=== PATIENT | male | born 1965 | race Caucasian/White ===

== ENCOUNTER 2016-11-21 09:38 | Emergency (ER) | payer BC ==
[~2016-11-21] VITALS: Ht 185.4 cm; Wt 102.6 kg
[~2016-11-21 09:38] MED LIST: CEPH500C PO
[2016-11-21 09:45] VITALS: TEMP 36.7; Ht 185.4 cm; Wt 102.6 kg
[2016-11-21] MEDS ORDERED: ACETAMINOPHEN 500 MG TAB PO STA (09:59)
--- NOTE | 2016-11-21 10:04 | EMERGENCY ROOM VISIT NOTE ---
History Report prepared by Scribe: Mague Loznao Under the Supervision of: Dr. German Fraser D.O. First contact with patient: 09:54 Chief Complaint: FACIAL PAIN/INJURY Stated Complaint: HIT IN FACE W/BALL History of Present Illness The patient is a 51 year old male who presents to the Emergency Room with complaints of persistent facial pain that started prior to arrival. The patient was playing softball earlier this morning when he was hit in the face by a ball. The ball hit his left cheek and temporal area and he briefly lost consciousness. The patient rates his pain as a 3/10. He also complains of some neck pain. He denies any recent headaches, nausea, vomiting or back pain. 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 A total of 10 systems reviewed and were otherwise negative. Past Medical & Surgical Medical Problems: (1) History of DVT (deep vein thrombosis) (2) Torn Achilles tendon Social History Smoking Status: Never Smoker Alcohol Use: occasionally Drug Use: none Marital Status: Housing Status: lives with family Occupation Status: employed Current/Historical Medications Scheduled Cephalexin Monohydrate (Keflex), 500 MG PO QID Scheduled PRN Oxycodone Immediate Rel Tab (Roxicodone Ir), 1-2 TAB PO Q4H PRN for Severe Pain Allergies Coded Allergies: Morphine (Unverified Allergy, Unknown, NAUSEA/ITHCY, 11/21/16) Morphine and Related (Unverified Allergy, Unknown, NAUSEA, ITCHINESS, 11/21) Physical Exam Vital Signs Date Time Temp Pulse Resp B/P (MAP) Pulse Ox O2 Delivery O2 Flow Rate FiO2 11/21/16 11:03 59 18 128/84 96 Room Air 11/21/16 09:45 36.7 68 18 149/96 96 Room Air Physical Exam GENERAL: Patient is awake, alert, somewhat anxious appearing but does not appear uncomfortable. EYES: The conjunctivae are clear. The pupils are round and reactive. Significant periorbital edema and ecchymosis around the left eye, no subcutaneous emphysema appreciated. No hyphema noted. Small conjunctival hemorrhage noted on the lateral aspect of the eye. EARS, NOSE, MOUTH AND THROAT: TM's clear bilaterally. The nose is without any evidence of any deformity. Mucous membranes are moist tongue is midline NECK: The neck is nontender and supple. RESPIRATORY: Normal respiratory effort is noted there is no evidence of wheezing rhonchi or rales CARDIOVASCULAR: Regular rate and rhythm noted there no murmurs rubs or gallops normal S1 normal S2 GASTROINTESTINAL: The abdomen is soft. Bowel sounds are present in all quadrants. Abdomen is nontender MUSCULOSKELETAL/EXTREMITIES: There is no evidence of gross deformity full range of motion is noted in the hips and shoulders SKIN: There is no obvious evidence of any rash. There are no petechiae, pallor or cyanosis noted. NEUROLOGIC: Patient is awake alert and oriented x3 strength is symmetric patellar reflexes are 2+ bilaterally Medical Decision & Procedures ER Provider Diagnostic Interpretation: Radiology results as stated below per my review and radiologist interpretation: HEAD CT NONCONTRAST CT DOSE: 774.61 mGy.cm HISTORY: Facial injury. trauma TECHNIQUE: Multiaxial CT images of the head were performed without the use of intravenous contrast. Automated exposure control was utilized for this study. A dose lowering technique was utilized adhering to the principles of ALARA. Comparison: None. Findings: Left periorbital soft tissue swelling which is better present on the same day maxillofacial CT. The calvarium is intact. The ventricles and sulci are within normal limits. There is no mass, hematoma, midline shift, or acute infarct. Impression: No acute intracranial abnormality. MAXILLOFACIAL CT CT DOSE: 774.61 mGy.cm HISTORY: Left-sided facial injury. trauma TECHNIQUE: Multiaxial CT images of the maxillofacial region were performed and reformatted in the coronal plane without the use of contrast. A dose lowering technique was utilized adhering to the principles of ALARA. COMPARISON: None. FINDINGS: The visualized cervical spine, mandible, nasal bone, and right facial osseous structures are intact. No fractures within the left lamina papyracea are medial wall of the left maxillary sinus. Nondisplaced fractures involving the base of the left pterygoid plates and left lateral pterygoid plate. Comminuted and mildly displaced left zygomatic arch fracture. Comminuted fractures involving the lateral wall of the left maxillary sinus. Essentially nondisplaced fracture within the anterior wall of the left maxillary sinus. The left orbital floor fracture is not significantly displaced. Comminuted fractures within the lateral wall of the left orbit demonstrates up to 2 mm of depression. The globes and retrobulbar fat are intact. Left periorbital and left facial soft tissue swelling. There is hemorrhage within the left maxillary sinus. There is no evidence for herniation of the orbital fat into the left orbital floor fracture. IMPRESSION: 1. Above fractures constitute a left zygomaticomaxillary complex fracture as described above. There is also extension into the left pterygoid plates. 2. Left periorbital/facial soft tissue swelling. 3. Hemorrhage within the left maxillary sinus. Electronically signed by: Leonel Farr M.D. 11/21/2016 10:36 AM Medications Administered Medications (Trade) Dose Ordered Sig/Prakash Route Start Time Stop Time Status Last Admin Dose Admin Acetaminophen (Tylenol Tab) 1,000 mg NOW STAT PO 11/21/16 09:59 11/21/16 10:00 DC 11/21/16 10:07 1,000 MG ED Course 0955: The patient was evaluated in room B4. A complete history and physical examination were performed. 0959: Acetaminophen 1000 mg PO. 1100: I discussed the patients case with Dr. Gil Gaines, Neurosurgery, a friend of the patient. He recommends the patient follow up with Dr. Treviño, ENT in [place], [place]. 1102: I reevaluated the patient. He is resting comfortably. I discussed his results and discharge instructions and he verbalized complete understanding and agreement. Medical Decision The patient is a 51-year-old male who was playing softball today and was struck on the left side of his face with a line drive. The patient was playing second base. The patient had significant tenderness and swelling to the left periorbital region. He did not appear to have any hyphema or pupillary changes on exam. The patient arrived at the emergency department with a friend who is also a neurosurgical sap solution manager consultant at [facility]. The patient had his cervical spine clinically cleared in the emergency department. I discussed the patient's CAT scan with him. He was treated with Tylenol in the emergency department. He also had an ice pack placed to the side of the face. The patient is found have multiple facial bone fractures. This would appear to be consistent with a tripod-like injury but also has some injury to the maxillary sinus. The patient was started on a course of antibiotics. I discussed the patient's CAT scan report with him and he was given a disc as well as a report to take with him. I called the neurosurgeon who came to the emergency Department with him who was also playing softball and he made a recommendation of an ear nose and throat physician in the [place] area who could follow this up. The patient was encouraged to rest and avoid any strenuous activity. He was also encouraged to try not to blow his nose. He was also encouraged to continue all medications as prescribed and follow-up with ear nose and throat physician periodicals library assistant is possible but return to the emergency department immediately if symptoms change worsen or the need arises. Medication Reconcilliation Current Medication List: was personally reviewed by me Blood Pressure Screening Patient's blood pressure: Elevated blood pressure Blood pressure disposition: Elevated BP felt to be situational Impression Primary Impression: Multiple facial bone fractures Additional Impressions: Zygoma fracture Facial contusion Scribe Attestation The scribe's documentation has been prepared under my direction and personally reviewed by me in its entirety. I confirm that the note above accurately reflects all work, treatment, procedures, and medical decision making performed by me. Departure Information Dispostion Home / Self-Care Prescriptions Oxycodone Immediate Rel Tab (ROXICODONE IR) 5 Mg Tab 1-2 TAB PO Q4H Y for Severe Pain, #24 TAB Prov: German Fraser, DO 11/21/16 Cephalexin Monohydrate (KEFLEX) 500 Mg Cap 500 MG PO QID, #28 CAP Prov: German Fraser, DO 11/21/16 Referrals Ever Mac M.D. (PCP) Patient Instructions Fx Facial, My [facility] Additional Instructions Call the ear nose and throat physician tomorrow morning to schedule a follow-up appointment. Try your best to avoid blowing her nose. Dr Darren Godfrey Continue all medications as prescribed. Continue taking Tylenol as directed for mild pain. Return to the emergency department immediately if symptoms change worsen or the need arises. Problem Qualifiers
--- NOTE | 2016-11-21 10:38 | DIAGNOSTIC IMAGING REPORT ---
HEAD CT NONCONTRAST CT DOSE: 774.61 mGy.cm HISTORY: Facial injury. trauma TECHNIQUE: Multiaxial CT images of the head were performed without the use of intravenous contrast. Automated exposure control was utilized for this study. A dose lowering technique was utilized adhering to the principles of ALARA. Comparison: None. Findings: Left periorbital soft tissue swelling which is better present on the same day maxillofacial CT. The calvarium is intact. The ventricles and sulci are within normal limits. There is no mass, hematoma, midline shift, or acute infarct. Impression: No acute intracranial abnormality. MAXILLOFACIAL CT CT DOSE: 774.61 mGy.cm HISTORY: Left-sided facial injury. trauma TECHNIQUE: Multiaxial CT images of the maxillofacial region were performed and reformatted in the coronal plane without the use of contrast. A dose lowering technique was utilized adhering to the principles of ALARA. COMPARISON: None. FINDINGS: The visualized cervical spine, mandible, nasal bone, and right facial osseous structures are intact. No fractures within the left lamina papyracea are medial wall of the left maxillary sinus. Nondisplaced fractures involving the base of the left pterygoid plates and left lateral pterygoid plate. Comminuted and mildly displaced left zygomatic arch fracture. Comminuted fractures involving the lateral wall of the left maxillary sinus. Essentially nondisplaced fracture within the anterior wall of the left maxillary sinus. The left orbital floor fracture is not significantly displaced. Comminuted fractures within the lateral wall of the left orbit demonstrates up to 2 mm of depression. The globes and retrobulbar fat are intact. Left periorbital and left facial soft tissue swelling. There is hemorrhage within the left maxillary sinus. There is no evidence for herniation of the orbital fat into the left orbital floor fracture. IMPRESSION: 1. Above fractures constitute a left zygomaticomaxillary complex fracture as described above. There is also extension into the left pterygoid plates. 2. Left periorbital/facial soft tissue swelling. 3. Hemorrhage within the left maxillary sinus. Electronically signed by: Leonel Farr M.D. 11/21/2016 10:36 AM Dictated Date/Time: 11/21/2016 10:21 AM
[2016-11-21 11:03] VITALS: BP 128/84; PULSE 59; O2SAT 96
[2016-11-21] MEDS ORDERED: OXYC1TAB3 PO (11:04)
[2016-11-21] MEDS ORDERED: CEPH500C2 PO (11:04)
== END 2016-11-21 11:27 | disposition home or self-care (01) ==
LOC: C.EDB 09:40
DX: S02.40DA Maxillary fracture, left side, initial encounter for closed fracture (principal); S02.19XA Other fracture of base of skull, initial encounter for closed fracture; S02.40FA Zygomatic fracture, left side, initial encounter for closed fracture; S00.83XA Contusion of other part of head, initial encounter; W21.07XA Struck by softball, initial encounter; Y93.64 Activity, baseball; H11.32 Conjunctival hemorrhage, left eye; Z86.718 Personal history of other venous thrombosis and embolism